=== PATIENT | female | born 1960 | race Caucasian/White ===

== ENCOUNTER → 2024-02-23 | Outpatient (CLI) | payer MEDICARE, BC | LOC: M PLAIMG 13:48 | PROVIDERS: ATTEND Internal Medicine | DX: M48.061 Spinal stenosis, lumbar region without neurogenic claudication (principal); M51.36 Other intervertebral disc degeneration, lumbar region; M53.3 Sacrococcygeal disorders, not elsewhere classified; M89.38 Hypertrophy of bone, other site; M54.9 Dorsalgia, unspecified ==

== ENCOUNTER → 2024-10-25 | Outpatient (REF) | payer MEDICARE, BC ==
[2024-10-25 16:15] LABS: C REACTIVE PROTEIN QUANTITATIV < 0.50 MG/DL (<1.0)
[2024-10-25 16:16] LABS: ALKALINE PHOSPHATASE 93 U/L (35-104); ALT/SGPT 42 U/L (7.0-40); AST/SGOT 17 U/L (<34); BILIRUBIN,DIRECT 0.2 MG/DL (<0.4); BILIRUBIN,TOTAL 0.6 MG/DL (0.3-1.2); BLOOD UREA NITROGEN 19 MG/DL (9-23); CALCIUM LEVEL 9.9 MG/DL (8.3-10.6); CARBON DIOXIDE LEVEL 32 MMOL/L (20-31); CHLORIDE LEVEL 101 MMOL/L (98-107); CREATININE FOR GFR 0.62 MG/DL (0.55-1.30); GLOMERULAR FILTRATION RATE > 60.0 (>45); GLUCOSE, FASTING 116 MG/DL (74-106); POTASSIUM SERUM 3.7 MMOL/L (3.5-5.1); SODIUM LEVEL 142 MMOL/L (136-145); TOTAL 25(OH) VITAMIN D 48.2 NG/ML (20.0-100.0); TOTAL PROTEIN 6.9 G/DL (5.7-8.2)
[2024-10-25 16:21] LABS: BASO # 0.1 10^3/uL (0.0-0.2); BASO % 1.3 % (0.0-1.0); EOS # 0.3 10^3/uL (0.0-0.5); HEMATOCRIT 45.6 % (36.0-47.0); HEMOGLOBIN 14.3 g/dl (12.0-15.5); LYMPH # 1.7 10^3/uL (1.5-5.0); MEAN CORPUSCULAR HEMOGLOBIN 27.8 pg (27.0-33.0); MEAN CORPUSCULAR HGB CONC 31.4 g/dl (32.0-36.5); MEAN CORPUSCULAR VOLUME 88.7 fl (80.0-96.0); MONO # 0.6 10^3/uL (0.0-0.8); MONO % 8.4 % (2.0-8.0); NEUTROPHILS # 4.1 10^3/uL (1.5-8.5); PLATELET COUNT, AUTOMATED 287 10^3/uL (150-450); RED BLOOD COUNT 5.14 10^6/uL (4.00-5.40); WHITE BLOOD COUNT 6.8 10^3/uL (4.0-10.0)
[2024-10-25 16:40] LABS: ERYTHROCYTE SEDIMENTATION RATE 29 mm/hr (0-30)
== END ==
LOC: M SFHCRHEU 08:32
PROVIDERS: ATTEND Internal Medicine
DX: M47.819 Spondylosis without myelopathy or radiculopathy, site unspecified (principal); Z79.899 Other long term (current) drug therapy

== ENCOUNTER → 2025-03-12 | Outpatient (REF) | payer MEDICARE, BC ==
[2025-03-12 15:47] LABS: ALT/SGPT 34 U/L (7.0-40); AST/SGOT 20 U/L (<34); C REACTIVE PROTEIN QUANTITATIV < 0.50 MG/DL (<1.0); CALCIUM LEVEL 10.0 MG/DL (8.3-10.6); CARBON DIOXIDE LEVEL 36 MMOL/L (20-31); CHLORIDE LEVEL 101 MMOL/L (98-107); CREATININE FOR GFR 0.65 MG/DL (0.55-1.30); GLOMERULAR FILTRATION RATE > 90.0 (>45); POTASSIUM SERUM 4.0 MMOL/L (3.5-5.1); SODIUM LEVEL 147 MMOL/L (136-145)
[2025-03-12 15:51] LABS: BASO # 0.1 10^3/uL (0.0-0.2); BASO % 0.9 % (0.0-1.0); EOS # 0.1 10^3/uL (0.0-0.5); EOS % 1.7 % (0.0-3.0); LYMPH # 1.7 10^3/uL (1.5-5.0); LYMPH % 19.8 % (24.0-44.0); MONO # 0.6 10^3/uL (0.0-0.8); MONO % 6.5 % (2.0-8.0); NEUTROPHILS # 6.0 10^3/uL (1.5-8.5); NEUTROPHILS % 70.7 % (36.0-66.0); PLATELET COUNT, AUTOMATED 339 10^3/uL (150-450)
[2025-03-12 15:59] LABS: ERYTHROCYTE SEDIMENTATION RATE 23 mm/hr (0-30)
== END ==
LOC: M SFHCRHEU 11:51
PROVIDERS: ATTEND Internal Medicine
DX: M47.819 Spondylosis without myelopathy or radiculopathy, site unspecified (principal)